=== PATIENT | female | born 1970 | race Caucasian/White ===

== ENCOUNTER 2017-08-02 18:50 | Emergency (ER) | payer OTHER ==
[~2017-08-02] VITALS: Ht 175.3 cm; Wt 70.0 kg
[2017-08-02 18:58] VITALS: BP 111/80
[2017-08-02] MEDS ORDERED: IBUPROFEN 200 MG TABLET ONE (19:19)
[2017-08-02] MEDS ORDERED: ONDANSETRON ODT 4 MG ONE (19:19)
[2017-08-02] MEDS ORDERED: OXYcodone/APAP 5/325MG TABLET ONE (19:19)
[2017-08-02] MEDS ORDERED: IBUPROFEN 200 MG TABLET PO ONE (19:30)
[2017-08-02] MEDS ORDERED: ONDANSETRON ODT 4 MG PO ONE (19:30)
[2017-08-02] MEDS ORDERED: OXYcodone/APAP 5/325MG TABLET PO ONE (19:30)
[2017-08-02] MEDS ORDERED: BUPIVACAINE/PF 0.5% ONE (20:08)
[2017-08-02] MEDS ORDERED: BUPIVACAINE/PF-EPI 0.25% 1:200K SQ ONE (20:30)
== END 2017-08-02 20:52 | disposition home or self-care (01) ==
LOC: ED 20:50
DX: S92.412A Displaced fracture of proximal phalanx of left great toe, initial encounter for closed fracture (principal); I34.1 Nonrheumatic mitral (valve) prolapse; Y93.44 Activity, trampolining; Y92.328 Other athletic field as the place of occurrence of the external cause; Y99.8 Other external cause status
CPT/HCPCS: 29515; 73660; 96372; 99284; Q0162; 64450

== ENCOUNTER → 2017-12-24 | Outpatient (CLI) | payer OTHER ==
[~2017-12-24] MED LIST: LIDOCAINE-MPF 2%, 2ML ONE
== END | disposition home or self-care (01) ==
LOC: RAD 12:41
PROVIDERS: ATTEND Family Medicine
DX: E04.2 Nontoxic multinodular goiter (principal)
CPT/HCPCS: 76942; 88173; J3490

== ENCOUNTER → 2017-12-25 | Outpatient (CLI) | payer OTHER | END | disposition home or self-care (01) | LOC: CFH 13:06 | PROVIDERS: ATTEND Family Medicine | DX: N63.10 Unspecified lump in the right breast, unspecified quadrant (principal); N63.20 Unspecified lump in the left breast, unspecified quadrant | CPT/HCPCS: 77066 ==

== ENCOUNTER → 2018-01-22 | Outpatient (CLI) | payer OTHER | END | disposition home or self-care (01) | LOC: RAD 13:18 | PROVIDERS: ATTEND Internal Medicine Endocrinology, Diabetes & Metabolism | DX: E04.1 Nontoxic single thyroid nodule (principal) | CPT/HCPCS: 76942 ==

== ENCOUNTER → 2020-04-04 | Outpatient (CLI) | payer OTHER ==
[~2020-04-04] MED LIST changes: +IBUP100T9 PO; -LIDOCAINE-MPF 2%, 2ML ONE
== END | disposition home or self-care (01) ==
LOC: CFH 09:15
PROVIDERS: ATTEND Family Medicine
DX: R92.1 Mammographic calcification found on diagnostic imaging of breast (principal); N63.10 Unspecified lump in the right breast, unspecified quadrant
CPT/HCPCS: 76642; 77066; G0279